=== PATIENT | male | born 1965 | race Caucasian/White ===

== ENCOUNTER 2021-11-08 06:01 | Day surgery (SDC) | payer OTHER ==
[~2021-11-08] VITALS: Ht 175.3 cm; Wt 79.5 kg
[~2021-11-08 06:01] MED LIST: C COMPLEX1000 M1 PO; VITAMIN D310 MC4 PO
--- NOTE | 2021-11-08 06:30 | NUR ---
Ambulatory in Day Surgery, DROPPED OFF BY DAUGHTER WHO WILL BE HIS RIDE HOME. History, Chart, Medications and Allergies reviewed before start of procedure. Lungs clear T/O to Auscultation. Patient confirms NPO status and agrees with scheduled surgery. Pre-Op teaching done. Pt verbalizes understanding. Patient States Post-Procedure ride home has been arranged.
--- NOTE | 2021-11-08 09:21 | NUR ---
PT TO STEP. C/O SURGICAL PAIN 09/06. DENIES NAUSES. CRACKERS AND WATER GIVEN TO PT. DRESSING D/I.
--- NOTE | 2021-11-08 10:00 | NUR ---
WRITTEN AND VERBAL D/C INSTUCTING GIVEN TO PT WITH STATED UNDERSTANDING.
== END 2021-11-08 22:43 | disposition home or self-care (01) ==
LOC: ORSCMMR 06:01 → ORD 07:30 → ORSCMMR 07:30
PROVIDERS: Surgery
PROC: 0YU50JZ Supplement Right Inguinal Region with Synthetic Substitute, Open Approach (ICD-10-PCS; principal; 2021-11-08 07:30)
DX: K40.90 Unilateral inguinal hernia, without obstruction or gangrene, not specified as recurrent (principal); K21.9 Gastro-esophageal reflux disease without esophagitis; Z87.891 Personal history of nicotine dependence
CPT/HCPCS: A9270; C1781; J0690; J1100; J1885; J2250; J2405; J2704; J3010; J7120